=== PATIENT | female | born 1930 | race Caucasian/White ===

== ENCOUNTER 2018-10-08 16:24 | Emergency (ER) | payer MEDICARE, BC ==
[~2018-10-08] VITALS: Ht 157.5 cm; Wt 76.2 kg
[2018-10-08] MEDS ORDERED: Neosporin Oint Ud Pkt TOP ONE (16:30)
[2018-10-08] MEDS ORDERED: Acetaminophen 500mg (ES) tab PO ONE (16:30)
--- NOTE | 2018-10-08 16:30 | NUR ---
ED Nurse Note: Pt came to ED via ambulance from [facility] s/p fall. Pt denies losing consciousness, A&Ox3, c/o 9/10 pain at the back of her head where she fell. No sob no chest pain, denies dizziness.
--- NOTE | 2018-10-08 16:35 | Emergency Room Report ---
History of Present Illness General Chief Complaint: Multiple Trauma/Fall Source: Patient, EMS Present Illness HPI Patient had a non-syncopal fall at her assisted living. She had the back of her head. There was some minimal bleeding. She states there is no loss of consciousness and she remembers falling. She complains about pain in the back of her head. She denies any neck pain or back or tailbone pain. Allegedly her vaccinations are up-to-date. Also review of medications reveal that she's not taking any blood thinners. Pain rated 9/10, back of head, sharp and aching. C/O pain in R leg (chronic) from wound under treatment. History of hypertension, hypothyroidism and diabetes. Allergies: Coded Allergies: No Known Allergies (Unverified , 10/08/18) Patient History Past Medical History: see triage record Social History: Denies: smoking Social History Narrative assisted living Reviewed Nursing Documentation: PMH: Agreed; PSxH: Agreed Nursing Documentation-PMH Hx Hypertension: Yes Hx Diabetes: Yes Hx Gastrointestinal Problems: No - Hypothyroidism History Of Psychiatric Problem: Yes - Dementia Review of Systems Constitutional: Denies: fever Eye: Denies: blurred vision Respiratory: Denies: shortness of breath Cardiovascular: Denies: chest pain, palpitations Gastrointestinal: Denies: nausea, vomiting Musculoskeletal: Reports: see HPI Skin: Reports: see HPI Neurological: Reports: see HPI Endocrine: Reports: see HPI All Other Systems: negative except mentioned in HPI Physical Exam Vital Signs Date Time Temp Pulse Resp B/P (MAP) Pulse Ox O2 Delivery O2 Flow Rate FiO2 10/08/18 16:14 97.5 108 18 Room Air Sp02 EP Interpretation: reviewed, normal General Appearance: well appearing, no apparent distress, alert, other - GCS 14 Head: other - Laceration occiput Eyes: bilateral eye PERRL, bilateral eye EOMI, bilateral eye other - sylastic lenses ENT: hearing grossly normal, normal voice, moist mucus membranes Neck: full range of motion, supple, no bony tend Respiratory: chest non-tender, lungs clear, normal breath sounds, no respiratory distress, speaking full sentences Cardiovascular #1: regular rate, rhythm Cardiovascular #2: 2+ radial (R) Gastrointestinal: normal inspection Musculoskeletal: back normal, normal range of motion, pelvis stable Neurologic: alert, supplier quality specialist III-XII nml as tested, motor strength/tone normal, DTRs symmetric, sensory intact, normal gait, speech normal, oriented - s Psychiatric: mood/affect normal Skin: other - hyperpigmented macule with dressing R inner thigh, laceration - Occiput Procedures Laceration/Wound Repair Laceration/Wound Repair : Consent: Verbal Wound Location: head Wound's Depth, Shape: superficial Wound Length (cm): 1 Wound Explored: clean Betadine Prep?: Yes Wound Debrided: None Wound Repaired With: Dermabond Sterile Dressing Applied?: No Patient Tolerated: Well Complications: None Medical Decision Making Diagnostic Impression: Primary Impression: Fall Qualified Codes: W19.XXXA - Unspecified fall, initial encounter Additional Impressions: Scalp laceration Qualified Codes: S01.01XA - Laceration without foreign body of scalp, initial encounter Head injury Qualified Codes: S09.90XA - Unspecified injury of head, initial encounter ER Course Patient presents with non-syncopal fall with head contusion and small laceration. Differential includes bleed, contusion, laceration amongst others. She has a nonfocal neurologic exam at this time however CT is indicated due to her age. Also Tylenol will be administered. The laceration will be repaired with Dermabond after cleaning. An EKG will be obtained. EKG no injury. CT no bleed. Daughter here. Ambulates with walker. Patient stable for outpatient observation and treatment. EKG Diagnostic Results Rate: normal Rhythm: NSR ST Segments: no acute changes Rhythm Strip Diag. Results EP Interpretation: yes Rhythm: NSR, no PVC's, no ectopy CT/MRI/US Diagnostic Results CT/MRI/US Diagnostic Results : Imaging Test Ordered: head Impression age related changes, hematoma scalp Last Vital Signs Date Time Temp Pulse Resp B/P (MAP) Pulse Ox O2 Delivery O2 Flow Rate FiO2 10/08/18 20:50 97.6 105 18 168/78 98 Room Air Status: improved Disposition: ASSISTED LIVING Condition: Improved Barney Larsen MD October 08, 2018 16:35
[2018-10-08 16:55] VITALS: BP 175/73
--- NOTE | 2018-10-08 17:26 | Diagnostic Imaging Report ---
EXAM: CT Head Without Intravenous Contrast CLINICAL HISTORY: TRAUMA TECHNIQUE: Axial computed tomography images of the head/brain without intravenous contrast. CTDI is 70.38 mGy and DLP is 1446 mGy-cm. One or more of the following dose reduction techniques were used: automated exposure control, adjustment of the mA and/or kV according to patient size, use of iterative reconstruction technique. COMPARISON: No relevant prior studies available. FINDINGS: Posterior scalp soft tissue swelling. No intracranial hemorrhage, abnormal intra- or extra-axial collections or parenchymal lesions are seen. There are involutional changes with prominence of the sulci, basal cisterns and ventricles. Prominent ventricles may be due to atrophy, cannot exclude NPH. Scattered white matter hypoattenuations are present, likely from small vessel disease. The heaton-white differentiation is preserved. No evidence of mass effect, midline shift, or edema. The osseous structures are unremarkable. Mild ethmoid sinus mucosal thickening. Mastoid air cells are clear. IMPRESSION: 1. Posterior scalp soft tissue swelling. No skull fracture. 2. No acute intracranial process. 3. Involutional changes with small vessel disease. 4. Prominent ventricles likely due to central atrophy, cannot exclude NPH.
--- NOTE | 2018-10-08 18:27 | NUR ---
ED Nurse Note: Dr Larsen used dermabond to close laceration, pt tolerated well. Pt reports pain is lessened 4/10. VSS
--- NOTE | 2018-10-08 18:50 | NUR ---
ED Nurse Note: RN attempted to call [facility]. no answer. will try again.
--- NOTE | 2018-10-08 18:52 | NUR ---
Spoke with Lynne at [phone]) aware of patient is going back by ambulance.
--- NOTE | 2018-10-08 19:11 | NUR ---
HAND-OFF: Report given to THERESE Martinez.Pt VSS
[2018-10-08 20:50] VITALS: BP 168/78
--- NOTE | 2018-10-08 20:52 | NUR ---
ED Nurse Note: Pt cleared by health care Provider for discharge. DC instructions/prescription was given and explained to pt's daughter and verbalized understanding of teachings. All medical deviecs such as ID band removed. Pt is AAO x3, ambulatory and left with all personal belongings. EMT took the patient back to [facility].
== END 2018-10-08 20:54 | disposition home or self-care (01) ==
LOC: EDBD 16:24 → EMR 17:12
DX: S01.01XA Laceration without foreign body of scalp, initial encounter (principal); S09.90XA Unspecified injury of head, initial encounter; W19.XXXA Unspecified fall, initial encounter; Y92.9 Unspecified place or not applicable; I10 Essential (primary) hypertension; E11.9 Type 2 diabetes mellitus without complications; E03.9 Hypothyroidism, unspecified; F03.90 Unspecified dementia, unspecified severity, without behavioral disturbance, psychotic disturbance, mood disturbance, and anxiety
CPT/HCPCS: 70450; 99284